=== PATIENT | female | born 1960 | race Caucasian/White ===

== ENCOUNTER 2024-12-23 09:14 | Inpatient (IN) ==
--- NOTE | 2024-12-23 09:48 | Emergency Department Note ---
Impression & Plan Dental abscess, Facial cellulitis, Failure of outpatient treatment ED Provider Note NAME: KAY SALVADOR AGE: 64 SEX: F : 1960 ARRIVES VIA: Walk-In INFORMANT: [Patient] ED PROVIDER(S): [Peng Spicer MD] CHIEF COMPLAINT: Dental pain HISTORY OF PRESENT ILLNESS: The patient is a 64-year-old female who presents with right lower jaw pain and swelling for the last 4 days. The patient is on Augmentin, this was started 2 days ago. Despite the Augmentin, things are worsening. She is trying ibuprofen for pain but it is upsetting her stomach. The patient has not yet seen a dentist, she states that given the holiday, no one seems to be calling back. Because of the ongoing swelling, she presents for evaluation. PMHx/PSHx/Social Hx: See Below PHYSICAL EXAM: GENERAL: Patient is in no acute distress. HEENT: No acute trauma, normocephalic atraumatic, mucous membranes moist, no nasal congestion. The patient does have swelling to the right lower mid jaw/mandible. She is tender in this area. There is erythema that tracks from this area down along the anterior right neck. She is tender in the area of the submental space on the right. There is no swelling to the area under the tongue. No pharyngitis. The right lower 1st and 2nd molars have inflammation at the gumline and are tender to touch. NECK: No stridor, no adenopathy, no meningismus, trachea is midline. LUNGS: Clear to auscultation bilaterally, no wheeze, no rhonchi, breath sounds equal. HEART: Without murmurs gallops or rubs, regular rate and rhythm. ABDOMEN: Soft, nontender, no peritonitis. EXTREMITIES: No cyanosis, full range of motion of all the joints without pain or difficulty. NEUROLOGIC: Oriented x 3, no acute motor or sensory deficits, no focal weakness. SKIN: No jaundice, no diaphoresis. DIFFERENTIAL DIAGNOSIS: Dental abscess, soft tissue abscess, failed outpatient management, pharyngitis, among others. EMERGENCY DEPARTMENT PROCEDURES: MEDICAL DECISION MAKING: There is no leukocytosis or concerning anemia. There is a normal platelet count. No bandemia. No renal failure or significant electrolyte abnormality. No concerning liver enzyme elevation. Soft tissue neck CT shows around a 1 cm abscess in the area of the right mandible consistent with her exam. The abscess was in the same area as the facial cellulitis. The patient received IV Unasyn. She received IV saline and IV Zofran, she was given IV morphine, IV Toradol, IV Pepcid and IV Tylenol. The patient has failed outpatient management. I did contact oral facial surgery. The patient may be a candidate for surgical intervention. However, for now, hospitalization, IV antibiotic therapy was recommended. I spoke with the patient and case management, the on-call hospitalist was consulted. Prior/Outside records/notes reviewed: None Imaging/x-ray results per my interpretation: Chronic Medical/Social conditions affecting care: None Care/Management discussed with: Case management, the on-call hospitalist. Maxillofacial surgery-Dr. Weller Level of care consideration(s): After review of the information above and other included data: --I believe the patient requires escalation of care to admission DISPOSITION: Admission Past Med/Surg History Problem List Failure of outpatient treatment (Acute) Facial cellulitis (Acute) Dental abscess (Acute) Medical History History of colitis Surgical History History of hysterectomy History of tonsillectomy Social History Smoking Status: Current every day smoker Preferred Language: Pashto Feels Safe at Home: Yes Allergies Allergies Allergy/AdvReac Type Severity Reaction Status Date / Time epinephrine AdvReac Mild Verified 11/28/22 12:34 Home Meds Home Medications Medication Instructions Recorded Confirmed Vitamin D3 0 mg PO DAILY 12/23/24 12/23/24 magnesium 0 mg PO HS 12/23/24 12/23/24 multivitamin 1 tab PO DAILY 12/23/24 12/23/24 Results & Data (ED) Vital Signs Vital Signs - 24 hr 12/23/24 09:15 12/23/24 09:18 12/23/24 10:50 Temperature 36.6 C Temperature Source Temporal Artery Scan Pulse Rate 85 Pulse Rate [Apical] 80 75 Respiratory Rate 18 20 18 Respiratory Effort / Characteristics Non-Labored Respiratory Depth Normal Blood Pressure 119/78 Blood Pressure [Left Arm] 132/84 118/73 Blood Pressure Mean 91 Blood Pressure Mean [Left Arm] 100 88 Pulse Oximetry 98 98 92 Oxygen Delivery Method Room Air Room Air Sepsis Recent Fever Within 48 Hours No Sepsis New/Unexplained Change in Mental Status No Sepsis Action Taken by Nursing No Action Required 12/23/24 12:30 12/23/24 13:30 Temperature Temperature Source Pulse Rate Pulse Rate [Apical] 70 63 Respiratory Rate 18 18 Respiratory Effort / Characteristics Respiratory Depth Blood Pressure Blood Pressure [Left Arm] 137/70 131/77 Blood Pressure Mean Blood Pressure Mean [Left Arm] 92 95 Pulse Oximetry 99 97 Oxygen Delivery Method Room Air Sepsis Recent Fever Within 48 Hours Sepsis New/Unexplained Change in Mental Status Sepsis Action Taken by Longterm Medications Current Medication List: was personally reviewed by me Laboratory Data Attestation: I reviewed the patient's lab results. 12/23/24 09:50 12/23/24 09:50 Lab Results 12/23/24 Range/Units 09:50 WBC 9.14 (4.8-10.8) K/ul RBC 4.58 (4.20-5.40) M/uL Hgb 14.0 (12.0-16.0) g/dl Hct 41.8 (37.0-47.0) % MCV 91.3 (80.0-100.0) fL MCH 30.6 (25.0-34.0) pg MCHC 33.5 (32.0-36.0) g/dL RDW Std Deviation 47.0 H (36.4-46.3) fL RDW Coeff of [place] 13.9 (11.5-14.5) % Plt Count 252 (130-400) K/uL MPV 9.4 (9.4-12.4) fL Immature Gran % (Auto) 0.2 % Neut % (Auto) 79.4 % Lymph % (Auto) 12.8 % [place] % (Auto) 6.2 % Eos % (Auto) 1.2 % Baso % (Auto) 0.2 % Neut # (Auto) 7.25 H (1.40-6.50) K/uL Lymph # (Auto) 1.17 L (1.20-3.40) K/uL [place] # (Auto) 0.57 (0.11-0.59) K/uL Eos # (Auto) 0.11 (0.00-0.50) K/uL Baso # (Auto) 0.02 (0.00-0.20) K/uL Immature Gran # (Auto) 0.02 (0.01-0.20) K/uL Sodium 139 (136-145) mmol/L Potassium 4.0 (3.5-5.1) mmol/L Chloride 106 (98-107) mmol/L Carbon Dioxide 28 (21-32) mmol/L Anion Gap 5 (3-11) BUN 10 (6-23) mg/dl Creatinine 0.74 (0.6-1.2) mg/dl Est Cr Clr Drug Dosing 64.4 ml/min eGFR 90.85 BUN/Creatinine Ratio 13.5 (10-20) Glucose 97 (70-99(Fasting)) mg/dl Calcium 9.1 (8.6-10.3) mg/dl Magnesium 2.1 (1.7-2.4) mg/dl Total Bilirubin 0.5 (0.2-1.0) mg/dl AST 57 H (13-39) U/L ALT 26 (7-52) U/L Alkaline Phosphatase 80 (34-104) U/L Total Protein 6.8 (6.0-8.3) gm/dl Albumin 4.3 (3.4-5.0) gm/dl Globulin 2.5 (2.5-4.0) gm/dl Albumin/Globulin Ratio 1.7 (0.9-2) Administered Medications Discontinued Medications Sodium Chloride (Nss) 1,000 mls @ 999 mls/hr IV .Q1H1M AUGUST Stop: 12/23/24 10:45 Last Infusion: 12/23/24 11:12 Dose: Infused Documented By: Admin: 12/23/24 09:55 Dose: 999 mls/hr Documented By: SHAYAN Acetaminophen (Ofirmev) 1,000 mg in 100 mls @ 400 mls/hr IV NOW STA Stop: 12/23/24 09:56 Last Infusion: 12/23/24 10:34 Dose: Infused Documented By: Admin: 12/23/24 09:55 Dose: 400 mls/hr Documented By: SHAYAN Ampicillin Sodium/Sulbactam Sodium (Unasyn) 3,000 mg in 100 mls @ 200 mls/hr IV NOW STA Stop: 12/23/24 10:11 Last Infusion: 12/23/24 10:35 Dose: Infused Documented By: Admin: 12/23/24 09:55 Dose: 200 mls/hr Documented By: SHAYAN Famotidine (Pepcid 20mg Iv Push) 20 mg in 5 mls @ 2.5 mls/min IV NOW STA Stop: 12/23/24 12:27 Last Admin: 12/23/24 12:31 Dose: 2.5 mls/min Documented By: RADHA Ioversol (Optiray 320 100ml) 94 ml IV ONCE ONE Stop: 12/23/24 11:15 Last Admin: 12/23/24 11:14 Dose: 94 ml Documented By: JOCELYN Ketorolac Tromethamine (Ketorolac Tromethamine 15 Mg/Ml Vial) 10 mg IV NOW ONE Stop: 12/23/24 09:43 Last Admin: 12/23/24 09:55 Dose: 10 mg Documented By: SHAYAN Morphine Sulfate (Morphine Sulfate 2 Mg/Ml Carp) 2 mg IV NOW STA Stop: 12/23/24 09:43 Last Admin: 12/23/24 09:56 Dose: 2 mg Documented By: SHAYAN Morphine Sulfate (Morphine Sulfate 4 Mg/Ml 1 Ml Carp\Vial) 4 mg IV NOW STA Stop: 12/23/24 12:27 Last Admin: 12/23/24 12:33 Dose: 4 mg Documented By: RADHA Ondansetron HCl (Ondansetron Inj 2 Mg/Ml 2 Ml Vial) 4 mg IV NOW STA Stop: 12/23/24 09:43 Last Admin: 12/23/24 09:55 Dose: 4 mg Documented By: SHAYAN Ondansetron HCl (Ondansetron Inj 2 Mg/Ml 2 Ml Vial) 4 mg IV NOW STA Stop: 12/23/24 12:27 Last Admin: 12/23/24 12:31 Dose: 4 mg Documented By: RADHA Imaging Data Radiologist's Impression: Soft Tissue Neck CT 12/23/24 09:42 CT OF THE NECK WITH IV CONTRAST CLINICAL HISTORY: abscess r face, jaw COMPARISON STUDY: CT of the neck November 28, 2022. TECHNIQUE: Following IV administration of 94 mL of Optiray, helical axial images of the neck were obtained. Sagittal and coronal reconstructions were viewed. Automated exposure control was utilized for the study. A dose lowering technique was utilized adhering to the principles of ALARA. CT DOSE: 353.4 mGy.cm FINDINGS: Visualized portions of the intracranial contents are unremarkable. Parotid and submandibular glands are normal. The epiglottis is normal. Several prominent right-sided cervical lymph nodes are likely reactive. There is a periapical lucency involving the right second mandibular molar. There is a small associated rim-enhancing fluid collection overlying the right hemimandible which measures 8 mm x 2 mm. Adjacent stranding represents cellulitis. No additional fluid collections are present. There is no soft tissue gas. Multiple dental amalgams are present. The left first mandibular molar is absent. IMPRESSION: Periapical lucency involving the right second mandibular molar with a small associated 8 mm x 2 mm abscess overlying the right hemimandible. Adjacent stranding consistent with cellulitis. ACT 112: Negative or not required by law. Electronically signed by: Puma Grossman M.D. 12/23/2024 11:45 AM Discharge Plan Visit Data Chief Complaint: Dental/Oral Stated Complaint: MOUTH INF RT SIDE ED Provider: Peng Spicer Discharge Problem: Dental abscess, Facial cellulitis, Failure of outpatient treatment Patient Disposition: Admitted As Inpatient Condition: Fair Forms Stand Alone Forms: My ZMP Prescriptions Prescriptions: No Action multivitamin [Multi-Vitamins] Tablet 1 tab PO DAILY Vitamin D3 0 mg PO DAILY Patient Comments: 12/23- OTC unknown dose magnesium 0 mg PO HS Patient Comments: 12/23- OTC unknown dose Referrals Referrals: Kayla James DO [Primary Care Provider] -
[2024-12-23] MEDS: ACETAMINOPHEN 1,000 MG/100 ML VIAL IV STA (09:55)
[2024-12-23] MEDS: KETOROLAC TROMETHAMINE 15 MG/ML VIAL IV ONE (09:55)
[2024-12-23] MEDS: SODIUM CHLORIDE 0.9% 1,000 ML IV SCH (09:55)
[2024-12-23] MEDS: ONDANSETRON INJ 2 MG/ML 2 ML VIAL IV STA ×2 (09:55→12:31)
[2024-12-23] MEDS: AMPICILLIN/SULBACTAM SOD 3,000 MG/100 ML BAG IV STA (09:55)
[2024-12-23] MEDS: MoRPHine SULFATE 2 MG/ML CARP IV STA (09:56)
[2024-12-23 10:15] LABS: Hematocrit (blood only) 41.8 % (37.0-47.0); Hemoglobin 14.0 g/dl (12.0-16.0); Immature Granulocytes # (auto) 0.02 K/uL (0.01-0.20); Immature Granulocytes % (auto) 0.2 %; Mean Corpuscular Hemoglobin 30.6 pg (25.0-34.0); Mean Corpuscular Volume 91.3 fL (80.0-100.0); Platelet Count 252 K/uL (130-400); RDW Standard Deviation 47.0 fL (36.4-46.3); Red Blood Count 4.58 M/uL (4.20-5.40); White Blood Count 9.14 K/ul (4.8-10.8)
[2024-12-23 10:34] LABS: Alanine Aminotransferase 26.0 U/L (7-52); Albumin Globulin Ratio 1.7 (0.9-2); Alkaline Phosphatase 80.0 U/L (34-104); Anion Gap 5.0 (3-11); Bilirubin,Total 0.5 mg/dl (0.2-1.0); Blood Urea Nitrogen 10.0 mg/dl (6-23); Calcium 9.1 mg/dl (8.6-10.3); Carbon Dioxide 28.0 mmol/L (21-32); Chloride 106.0 mmol/L (98-107); Creatinine Clr Calc Pharmacy 64.4 ml/min; Globulin 2.5 gm/dl (2.5-4.0); Glucose 97.0 mg/dl (70-99(Fasting)); Magnesium 2.1 mg/dl (1.7-2.4); Potassium 4.0 mmol/L (3.5-5.1); Sodium 139.0 mmol/L (136-145); Total Protein 6.8 gm/dl (6.0-8.3)
[2024-12-23] MEDS: OPTIRAY 320 100ml IV ONE (11:14)
--- NOTE | 2024-12-23 11:48 | CT Scan Report ---
CT OF THE NECK WITH IV CONTRAST CLINICAL HISTORY: abscess r face, jaw COMPARISON STUDY: CT of the neck November 28, 2022. TECHNIQUE: Following IV administration of 94 mL of Optiray, helical axial images of the neck were ob tained. Sagittal and coronal reconstructions were viewed. Automated exposure control was utilized f or the study. A dose lowering technique was utilized adhering to the principles of ALARA. CT DOSE: 353.4 mGy.cm FINDINGS: Visualized portions of the intracranial contents are unremarkable. Parotid and submandibul ar glands are normal. The epiglottis is normal. Several prominent right-sided cervical lymph nodes ar e likely reactive. There is a periapical lucency involving the right second mandibular molar. There i s a small associated rim-enhancing fluid collection overlying the right hemimandible which measures 8 mm x 2 mm. Adjacent stranding represents cellulitis. No additional fluid collections are present. Th ere is no soft tissue gas. Multiple dental amalgams are present. The left first mandibular molar is a bsent. IMPRESSION: Periapical lucency involving the right second mandibular molar with a small associated 8 mm x 2 mm abscess overlying the right hemimandible. Adjacent stranding consistent with cellulitis. ACT 112: Negative or not required by law. Electronically signed by: Puma Grossman M.D. 12/23/2024 11:45 AM
[2024-12-23] MEDS: FAMOTIDINE 20MG IV PUSH 20 MG/5 ML SYR IV STA (12:31)
[2024-12-23] MEDS: MoRPHine SULFATE 4 MG/ML 1 ML CARP\\VIAL IV STA (12:33)
--- NOTE | 2024-12-23 16:25 | History & Physical Report ---
Date of Service December 23, 2024 Assessment & Plan (1) Dental abscess: Plan: As above in the History of Present Illness. (2) Tobacco abuse: Plan: As above in the History of Present Illness. Admission and Anticipated Discharge Date Admission Date: December 23, 2024 History of Present Illness Chief Complaint: "Last Wednesday (December 12, 2024), my throat was sore and both my ears hurt. The next day/Wednesday (December 13, 2024), I was fine. I was fine until this Wednesday (December 19, 2024), when the back tooth on my right lower jaw started hurting and the gum started swelling up. 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 Now, I must have a tooth infection. On evening (December 21, 2024, 6:45pm), I couldn't take the pain any longer, so I went to [facility] ([facility] [place] [address]) and they prescribed augmentin 875/125mg PO bid and ibuprofen 600mg PO q6 prn pain. The augmentin did not take away my swelling and the ibuprofen did not take away my pain. If anything at all, the ibuprofen did a number on my stomach, so I am not taking ibuprofen anymore. I didn't go back to [facility] ([address] [place] [address], [place] [address]); I came to [facility] ER instead to get my tooth infection taken care of today. I got some IV antibiotic (e.g., unasyn 3g IV x 1 dose on 12/23/2024, 9:55am), and some pain meds (e.g., toradol 10mg IV x 1 dose (12/23/2024, 9:55am), tylenol 1000mg IV x 1 dose (12/23/2024, 9:55am), morphine 2mg IV x 1 dose (12/23/2024, 9:56am), morphine 4mg IV x 1 dose (12/23/2024, 12:33pm), but I still hurt. The ER doc said that Oromaxillofacial Surgeon Dr. Ke Weller will be stopping by to drain my tooth infection later today. 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 The next day/Wednesday (December 13, 2024), I was fine. I was fine until this Wednesday (December 19, 2024), when the back tooth on my right lower jaw started hurting and the gum started swelling up. 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 Now, I must have a tooth infection. On evening (December 21, 2024, 6:45pm), I couldn't take the pain any longer, so I went to [facility] ([facility] [place] [address]) and they prescribed augmentin 875/125mg PO bid and ibuprofen 600mg PO q6 prn pain. The augmentin did not take away my swelling and the ibuprofen did not take away my pain. If anything at all, the ibuprofen did a number on my stomach, so I am not taking ibuprofen anymore. I didn't go back to [facility] ([facility] [place] [address]); I came to [facility] ER instead to get my tooth infection taken care of today. I got some IV antibiotic (e.g., unasyn 3g IV x 1 dose on 12/23/2024, 9:55am), and some pain meds (e.g., toradol 10mg IV x 1 dose (12/23/2024, 9:55am), tylenol 1000mg IV x 1 dose (12/23/2024, 9:55am), morphine 2mg IV x 1 dose (12/23/2024, 9:56am), morphine 4mg IV x 1 dose (12/23/2024, 12:33pm)), but I still hurt. The ER doc said that Oromaxillofacial Surgeon Dr. Ke Weller will be stopping by to drain my tooth infection later today. I will need more pain medicine soon." Patient denies antecedent/coincident fevers, chills, diaphoresis, cough, wheeze, sore throat, hemoptysis, shortness of breath, dyspnea on exertion, chest pains, palpitations, pleurisy, nausea, vomiting, diarrhea, abdominal pain, pelvic pain, hematemesis, hematochezia, melena, hematuria, dysuria, frequency, urgency, headaches, dizziness, lightheadedness, visual changes, hearing changes, weakness, falls, syncope, trauma, travel history, sick contacts, or food/drug ingestions novel or new. All other review of systems are reported as negative by the patient on admission date 12/23/2024. In [facility] ER bed #C06, patient was afebrile @ 36.6 degrees Celsius, HR 85, RR 0, O2 sat 98% on room air, and BP 119/78 (12/23/2024, 9:18am). Exam was noted for warmth, edema, tenderness, fluctuance @ base of right 2nd mandibular molar without ulceration, discharge (sanguineous, serous, suppurative), malodor, or lymphangitic streaking, with mercury filling @ right 2nd mandibular molar intact and no visible caries @ right 2nd mandibular molar. The remaining 3 second molars also appeared intact with no visible caries. There was no other evidence of gingivostomatitis on inspection of patient's remaining gum line. Labs in [facility] ER bed #C06 included: WBC 9.14, N79 L13 M6 E1, Hb 14.0, MCV 91.3, MCHC 33.5, platelet 252 (12/23/2024, 9:50am). Na 139, K 4.0 BUN 10, creatinine 0.74, glucose 97, Ca 9.1, Mg 2.1, AST 57, ALT 26, ALK PHOS 80, TBili 0.5 (12/23/2024, 9:50am). Additional testing in [facility] ER bed #C06 included: CT neck with IV contrast (12/23/2024, 9:42am): 1. Visualized portions of the intracranial contents are unremarkable. 2. Parotid and submandibular glands are normal. 3. The epiglottis is normal. 4. Several prominent right-sided cervical lymph nodes are likely reactive. 5. Periapical lucency involving the right second mandibular molar. 6. Small associated rim-enhancing fluid collection overlying the right hemimandible which measures 8 mm x 2 mm. Adjacent stranding represents cellulitis. 7. No additional fluid collections are present. 8. No soft tissue gas. 9. Multiple dental amalgams are present. 10.The left first mandibular molar is absent. Patient was subsequently admitted to the inpatient hospitalist service @ [facility] on 12/23/2024 with the following diagnoses: 1. Acute right 2nd mandibular molar abscess with surrounding cellulitis, having failed outpatient therapy utilizing augmentin 875/125mg PO bid (start date/time, December 21, 2024, 8:00pm) at home. 2. Ongoing tobacco abuse with no subsequent diagnosis of COPD, not on home O2 or home steroids. To address #1, patient was started on unasyn 3g IV x 1 dose on 12/23/2024, 9:55am), and analgesia (e.g., toradol 10mg IV x 1 dose (12/23/2024, 9:55am), tylenol 1000mg IV x 1 dose (12/23/2024, 9:55am), morphine 2mg IV x 1 dose (12/23/2024, 9:56am), morphine 4mg IV x 1 dose (12/23/2024, 12:33pm)) in [facility] ER bed #C06. Patient was started on zosyn 4.5g IV q8 (day #06/27 on 12/23/2024, 4:45pm) in [facility] Med-Surg bed # W357-2 given the high incidence (cf., 40-80%) of resistance of E.coli to unasyn. While both unasyn and zosyn have excellent coverage against anaerobic bacteria, the principal weakness of unasyn is that it has become increasingly ineffective against beta-lactamase producing E. coli, which degrades ampicillin, even in the presence of sulbactam. Patient awaits formal OMFS evaluation with Dr. Ke Weller with anticipated I & D of acute right 2nd mandibular molar abscess in the 12/23/2024 pm. To address #2, patient received smoking cessation counselling [address] [facility] ER bed #C06. Patient agrees to quit smoking tobacco while in [facility]. Patient accepts offer of nicotine replacement utilizing nicotine patch 14mg transderrmal daily while in [facility]. Allergies Allergy/AdvReac Type Severity Reaction Status Date / Time epinephrine AdvReac Mild Verified 11/28/22 12:34 Home Medications Medication Instructions Recorded Confirmed Type Vitamin D3 0 mg PO DAILY 12/23/24 12/23/24 History magnesium 0 mg PO HS 12/23/24 12/23/24 History multivitamin 1 tab PO DAILY 12/23/24 12/23/24 History Past Med/Surg History Problem List (Updated 12/23/24 @ 17:30 by Max Manning MD, PhD) Tobacco abuse Failure of outpatient treatment (Acute) Facial cellulitis (Acute) Dental abscess (Acute) Medical History History of colitis Surgical History History of tonsillectomy History of hysterectomy Family History Father , Unknown age, unknown cause as patient is estranged from patient's father. No problems noted. Mother , at 84 years of age from acute CVA with former tobacco abuse. No problems noted. 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 How many Children do You have: 2 How many Children do You have Comment: 35y son,s/p appy; 38y daughter w/thyroid CA,s/p resection;PCOS;IBS;pre-DM;obesity other: Frustrated with boss/Deli Mgr @ [employer]; wants to quit and find new job. Feels Safe at Home: Yes Review of Systems Constitutional: As above in the History of Present Illness. Physical Exam Constitutional: General: Uncomfortable with patient pointing to her right 2nd mandibular molar abscess, yet cooperative, coherent. Patient speaks in complete, fluent, and articulate sentences without pause, interruption, cough, or wheeze. HEENT: Normocephalic, atraumatic. Pupils equally round and reactive to light. No nystagmus, gaze paresis, anisocoria, miosis, mydriasis, hyphema, scleral injection, conjunctivitis, or pterygium. No otorrhea. No pharyngeal erythema, edema, or discharge. Warmth, edema, tenderness, fluctuance @ base of right 2nd mandibular molar without ulceration, discharge (sanguineous, serous, suppurative), malodor, or lymphangitic streaking, with mercury filling @ right 2nd mandibular molar intact and no visible caries @ right 2nd mandibular molar. Remaining 3 second molars appear intact with no visible caries. No other evidence of gingivostomatitis on inspection of patient's remaining gum line. Neck: Supple, no stridor, bruit, or hepato-jugular reflux. No lid lag. No exophthalmos/proptosis. Positive for multi-nodular goiter, bilateral tenderness. Jugular venous pressure is estimated to be 3 cm above the sternal angle of Alexei, which in turn, is 5 cm above the level of the right atrium; with jugular venous pressure estimated to be 8 cm, then, there is no jugular venous distention on 12/23/2024. Lymphatics: Positive right anterior cervical lymphadenopathy. Negative for right posterior cervical, left anterior/posterior cervical, supraclavicular, infraclavicular, axillary, epitrochlear, or inguinal adenopathy. Chest: Symmetric rise and fall with respirations. Non-tender to palpation. Lungs: Clear to auscultation and percussion. No audible expiratory wheeze, egophony, pectoriloquy, increase in tactile fremitus, or flatness/dullness to percussion at the bases. Heart: Regular rate. Regular rhythm. S1 and S2 noted. No S3 or S4 summation gallop. No tripartite friction rub. Grade II/ early systolic murmur @ LLSB without radiation to the carotids, axilla, or back, and which remains invariant in regards to the respiratory cycle. Abdomen: Soft, non-tender, non-distended. No rebound, guarding, Mosqueda's sign, or organomegaly. Bowel sounds auscultated in all 4 quadrants. Extremities: No clubbing, cyanosis, or edema in upper extremities or lower extremities bilaterally. 2+ pedal pulses bilaterally. Skin: No decubitus ulcer, exanthem, or enanthem. Genito-urinary: No urethral discharge. No boswell catheter. Neurology: No myoclonus, tremors, or tics. Psychiatry: No homicidal ideation. No suicidal ideation. No flat affect; smiles appropriately. Results & Data Results & Data Vital Signs (Past 12 Hours) Vital Signs Temp Pulse Pulse Pulse Resp BP BP 12/23/24 16:00 36.7 C 59 L 16 133/75 12/23/24 15:52 56 L 16 136/77 12/23/24 14:00 72 18 119/73 12/23/24 13:30 63 18 131/77 12/23/24 12:30 70 18 137/70 12/23/24 10:50 75 18 118/73 12/23/24 09:18 36.6 C 85 20 119/78 12/23/24 09:15 80 18 132/84 Pulse Ox O2 Del Method 12/23/24 16:00 98 Room Air 12/23/24 15:52 98 Room Air 12/23/24 14:00 97 Room Air 12/23/24 13:30 97 Room Air 12/23/24 12:30 99 12/23/24 10:50 92 12/23/24 09:18 98 Room Air 12/23/24 09:15 98 Room Air Laboratory Results As above in the History of Present Illness. Diagnostic Findings As above in the History of Present Illness. Medications Administered As above in the History of Present Illness. Code Status & VTE Plan VTE Prophylaxis Plan VTE Prophylaxis will be ordered: Yes PG Care Time/CCT Total # of Minutes Spent Total Time Spent with Patient: Total time spent is greater than 50% in coordination of care (as documented) at patient's floor/unit and/or counseling patient: Coding Level of Care Code 27180 INT INP/OBS CARE MIN Diagnoses Dental abscess K04.7 Tobacco abuse Z72.0
[2024-12-23] MEDS: MoRPHine SULFATE 4 MG/ML 1 ML CARP\\VIAL IV PRN (16:31)
[2024-12-23] MEDS: PIPERACILLIN/TAZOBACTAM 4.5 GM/100 ML BAG IV ONE (17:04)
[2024-12-23] MEDS: PANTOprazole 40 MG/10 ML SYR IV SCH (17:05)
[2024-12-23] MEDS: ACETAMINOPHEN 325 MG TAB PO PRN (17:10)
[2024-12-23] MEDS: SODIUM CHLORIDE 0.9% 1,000 ML IV ONE (17:14)
[2024-12-23] MEDS: NICOTINE 14 MG/24 HR PATCH TD SCH (17:51)
--- NOTE | 2024-12-23 19:54 | Oral/Maxillofacial Consult ---
Date of Consultation December 23, 2024 History of Present Illness Attending Physician: Max Manning MD, PhD History of Present Illness Oral Maxillofacial Surgery Exam K12.2 CPT 80931 Present Complaint: I have pain/swelling/drainage from my infected lower right teeth 30,31 Swelling right submandibular area Symptoms have been ongoing for a about 5 days not responding to oral antibiotics now pain and more swelling She can not eat, sleep and in a lot of pain not controlled Oral Exam: Finding--swelling and abscess associated with the # 30 and 31 teeth, tender gingival tissue with deep pocket formation.Teeth are in an abnormal position and removal is clinical indicated. Large upper facial bone exostosis Imaging: CT scan was reviewed, there were no abnormal findings other then the infected lower right # 30, 31 with radiolucent bone defect surrounding there teeth The TMJ are well positioned and no evidence of bony pathology. The sinus, supporting bone all WNL Evaluated the nerve/sinus relationship to the roots of the teeth. The following teeth were carious # 30,31 Submandibular infection right side CT OF THE NECK WITH IV CONTRAST CLINICAL HISTORY: abscess r face, jaw FINDINGS: Visualized portions of the intracranial contents are unremarkable. Parotid and submandibular glands are normal. The epiglottis is normal. Several prominent right-sided cervical lymph nodes are likely reactive. There is a periapical lucency involving the right second mandibular molar. There is a small associated rim-enhancing fluid collection overlying the right hemimandible which measures 8 mm x 2 mm. Adjacent stranding represents cellulitis. No additional fluid collections are present. There is no soft tissue gas. Multiple dental amalgams are present. The left first mandibular molar is absent. IMPRESSION: Periapical lucency involving the right second mandibular molar with a small associated 8 mm x 2 mm abscess overlying the right hemimandible. Adjacent stranding consistent with cellulitis. Soft tissue: Mucobuccal fold and submandibular area is very swollen and fluctuant The floor of the mouth, tongue, hard/soft palate, posterior pharyngeal area all with in normal limits, no pathology or abnormal findings noted. Oral Care: Overall oral care is good Occlusion: Class I TMJ exam: No pop, clicking, pain, good ROM, No history of TMJ injury or dysfunction Periodontal exam: Right side gingival tissue showing evidence of periodontal pathology. Head/Neck exam: Neck is supple, FROM, Able to extend and flex neck w/o difficulty, Submandibular space swelling No masses, no abnormalities, no airway issues, history of sleep apnea Treatment Plan: NPO tonight, To OR tomorrow for I&D with extraction of # 30 and 31 Set up with general anesthesia in hospital due to complexity of the procedure I reviewed the treatment plan and consent with the patient Understanding was expressed. I explained why both teeth # 30 and 31 need to be extracted due to the bone loss noted on the CT Time was given for questions regarding the surgery, risks and post op care. Discussed alternative to treatment--procedure as planned, Do not do surgery The following teeth are decayed and fractured and removal is indicated PEGGY--3- and 31 with Intraoral I&D Risks discussed: Bleeding,Pain,swelling,infection, dry socket, delayed healing, nerve injury to face,lips,tongue,chin area which could be permanent (rare). TMJ, jaw stiffness, change in bite (rare), ear pain (referred). Need to leave a small root fragment in place to avoid injury to nerve Relationship of wisdom teeth to nerve/sinus and risk of jaw fracture. Future dental care is needed Home care reviewed: tooth brushing, rinsing, follow up care with Dr Weller. diet=[id number] dental. Discussed activity level, driving/work while on Rx pain Meds. Surgery to be set up tomorrow December 24 in the OR Allergies Allergy/AdvReac Type Severity Reaction Status Date / Time epinephrine AdvReac Mild Verified 11/28/22 12:34 Home Medications Medication Instructions Recorded Confirmed Type Vitamin D3 0 mg PO DAILY 12/23/24 12/23/24 History magnesium 0 mg PO HS 12/23/24 12/23/24 History multivitamin 1 tab PO DAILY 12/23/24 12/23/24 History Patient History Medical History History of colitis Surgical History History of tonsillectomy History of hysterectomy Family History (Updated 12/23/24 @ 17:25 by Max Manning MD, PhD) Father , Unknown age, unknown cause as patient is estranged from patient's father. No problems noted. Mother , at 84 years of age from acute CVA with former tobacco abuse. No problems noted. 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 How many Children do You have: 2 How many Children do You have Comment: 35y son,s/p appy; 38y daughter w/thyroid CA,s/p resection;PCOS;IBS;pre-DM;obesity Other Information That Helps Us Care for You: No other: Frustrated with boss/Toñitoi Mgr @ [employer]; wants to quit and find new job. Feels Safe at Home: Yes Safety Concerns: Feels Safe At This Time Results & Data Vital Signs (Past 12 Hours) Vital Signs Temp Pulse Pulse Pulse Resp BP BP 12/23/24 16:00 36.7 C 59 L 16 133/75 12/23/24 15:52 56 L 16 136/77 12/23/24 14:00 72 18 119/73 12/23/24 13:30 63 18 131/77 12/23/24 12:30 70 18 137/70 12/23/24 10:50 75 18 118/73 12/23/24 09:18 36.6 C 85 20 119/78 12/23/24 09:15 80 18 132/84 Pulse Ox O2 Del Method 12/23/24 16:00 98 Room Air 12/23/24 15:52 98 Room Air 12/23/24 14:00 97 Room Air 12/23/24 13:30 97 Room Air 12/23/24 12:30 99 12/23/24 10:50 92 12/23/24 09:18 98 Room Air 12/23/24 09:15 98 Room Air PG Care Time/CCT Total # of Minutes Spent Total Time Spent with Patient: Total time spent is greater than 50% in coordination of care (as documented) at patient's floor/unit and/or counseling patient: Coding Level of Care Code 60720 INT INP/OBS CARE 1/40MIN
[2024-12-23] MEDS: ONDANSETRON INJ 2 MG/ML 2 ML VIAL IV PRN (21:23)
[2024-12-23] MEDS: PIPERACILLIN/TAZOBACTAM 4.5 GM/100 ML BAG IV SCH (22:22)
[2024-12-24] MEDS: REMOVE NICODERM PATCH SCH (07:35)
[2024-12-24] MEDS ORDERED: SUCCINYLCHOLINE 100MG/5ML SYR IV ONE (15:49)
[2024-12-24] MEDS ORDERED: DEXAMETHASONE SOD INJ 4 MG/ML VIAL ONE (15:49)
[2024-12-24] MEDS ORDERED: PROPOFOL IV EMULSION 10 MG/ML 20 ML VIAL IV ONE (15:49)
[2024-12-24] MEDS ORDERED: ONDANSETRON INJ 2 MG/ML 2 ML VIAL ONE (15:49)
[2024-12-24] MEDS ORDERED: KETOROLAC 30 MG/ML VIAL ONE (15:49)
--- NOTE | 2024-12-24 16:15 | History & Physical Bridge Note ---
Date of Service December 24, 2024 History & Physical Bridge Note I have examined the patient, reviewed the History & Physical and in the interval since the performance of the History & Physical I have noted the following changes of clinical significance: no changes noted OK for the I&D with extractions of # 30,31
[2024-12-24] MEDS ORDERED: ONDANSETRON INJ 2 MG/ML 2 ML VIAL IV PRN (16:18)
[2024-12-24] MEDS ORDERED: HYDROmorphone INJ 1 MG/ML SYRINGE IV PRN (16:18)
[2024-12-24] MEDS ORDERED: ATROPINE SULFATE 0.1 MG/ML 10ML SYR IV PRN (16:18)
--- NOTE | 2024-12-24 16:18 | Anesthesiology Consultation ---
Date of Service December 24, 2024 Assessment & Plan ASA ASA2 Proposed Anesthesia Anesthesia Type: General Risk / Benefits Reviewed With: PT / POA / Parent / Guardian, Accepts Plan and Informed Consent Obtained History Surgery Operation Date: 12/24/24 06:30 Proposed Procedures p Incision and Drainage General(Right) - Ke Weller, DMD Height/Weight Height: 5 ft 3 in Weight: 59.5 kg Allergies Allergy/AdvReac Type Severity Reaction Status Date / Time epinephrine AdvReac Mild Verified 11/28/22 12:34 Medications Home Medications Medication Instructions Recorded Confirmed Last Taken Vitamin D3 0 mg PO DAILY 12/23/24 12/23/24 Unknown magnesium 0 mg PO HS 12/23/24 12/23/24 Unknown multivitamin 1 tab PO DAILY 12/23/24 12/23/24 Unknown Active Medications Generic Name Dose Route Start Last Admin Trade Name Freq PRN Reason Stop Dose Admin Acetaminophen 650 mg 12/23/24 13:15 12/24/24 13:30 Acetaminophen 325 Mg Tab PO 01/22/25 13:14 650 mg Q6H PRN Administration pain 1-3;headache;T>100.4F Pantoprazole Sodium 40 mg in 10 mls @ 5 mls/min 12/23/24 16:30 12/24/24 08:40 Protonix IV 01/22/25 16:29 5 mls/min DAILY AUGUST Administration Piperacillin Sod/Tazobactam Sod 4.5 gm in 100 mls @ 25 mls/hr 12/23/24 22:45 12/24/24 14:20 Zosyn IV 12/30/24 22:44 25 mls/hr Q8H AUGUST Administration Protocol Miscellaneous 1 each 12/24/24 08:59 12/24/24 07:35 Remove Nicoderm Patch N/A 01/23/25 08:58 1 each DAILY@0859 AUGUST Administration Morphine Sulfate 4 mg 12/23/24 16:25 12/24/24 07:35 Morphine Sulfate 4 Mg/Ml 1 Ml Carp\Vial IV 01/06/25 16:24 4 mg Q4 PRN Administration Severe Pain (Scale 7, 8, 9,10) Nicotine 1 patch 12/23/24 17:15 12/24/24 07:35 Nicotine 14 Mg/24 Hr Patch TD 01/22/25 17:14 1 patch QAM AUGUST Administration Ondansetron HCl 4 mg 12/23/24 20:53 12/24/24 07:35 Ondansetron Inj 2 Mg/Ml 2 Ml Vial IV 01/22/25 20:52 4 mg Q6H PRN Administration Nausea/vomiting NPO Date Last Intake of Fluids: 12/23/24 Time Last Intake of Fluids: 23:59 Last Intake of Fluids Comment: sips with meds Date Last Intake of Solids: 12/22/24 Time Last Intake of Solids: 18:00 Past Medical History Medical History History of colitis Exercise / Class Metabolic Activity II 4-5 Yardwork/Stairs/Walk up hill Past Family History Family History Father , Unknown age, unknown cause as patient is estranged from patient's father. No problems noted. Mother , at 84 years of age from acute CVA with former tobacco abuse. No problems noted. Past Surgical History Surgical History History of tonsillectomy History of hysterectomy Past Anesthesia History No Hx of Anesthesia Complications and No Family Hx of Anesthesia Complications History of PONV No Hx of PONV and No Hx of Motion Sickness Social History Smoking Status: Current every day smoker Do You Dip or Chew Tobacco: No Hx Alcohol Use: Yes Alcohol type: wine alcohol intake frequency: a few times a week Hx Substance Use: No Review of Systems denies fever/cough/ colds/ chest pain/ SOB/ EFREM denies EFREM Physical Exam Vital Signs Last Vital Signs Temp 37.1 C 12/24/24 14:18 Pulse 68 12/24/24 14:18 Resp 16 12/24/24 14:18 BP 122/75 12/24/24 14:18 Pulse Ox 99 12/24/24 14:18 O2 Del Method Room Air 12/24/24 14:18 ENMT Mouth: no TMJ abnormality and no dentition abnormality Thyromental Distance: > or= 3.5 Finger Breadths Mallampati Class: II Neck neck extension not limited Respiratory normal respiratory effort; no respiratory distress Auscultation: lungs clear to auscultation bilaterally Cardiovascular Rate/Rhythm: regular rate and regular rhythm Neurologic moves all extremities Psychiatric Orientation: alert and oriented x 3 Testing Laboratory Results 12/23/24 09:50 12/23/24 09:50
[2024-12-24] MEDS: BUPIVACAINE/EPINEPHRINE 0.5% 1:200,000 1.8 ML CARP ONE (17:02)
[2024-12-24] MEDS: CHLORHEXIDINE GLUCONATE 0.12% 480 ML MT ONE (17:03)
--- NOTE | 2024-12-24 17:20 | Post Operative Brief Note ---
PG Immediate Post Op with CF Date of Surgery December 24, 2024 Pre & Post Diagnosis Operation Date: 12/24/24 06:30 Pre-Op Diagnosis: Right mandibular dental abscess Post-Op Diagnosis: Right mandibular dental abscess I identified the patient and participated in the time-out.: Yes Procedure Operation Date: 12/24/24 06:30 Actual Procedures p Irrigation and debridement of right jaw (Right) - Ke Weller DMD Surgeon Ke Weller DMD Medical Coordinator Pesticide Use none Estimated Blood Loss 5 Findings Consistent with Post-Op Diagnosis grossly infected right retromolar area and right submandibular space Carious abscessed # 30,31 Specimens Specimen Description: 1. infected cyst right jaw
--- NOTE | 2024-12-24 17:51 | Anesthesiology Progress Note ---
Date of Service December 24, 2024 Anesthesia Post Procedure Vital Signs Vital Signs: Temp Pulse Pulse Resp BP BP Pulse Ox 12/24/24 17:45 36.7 C 65 18 152/77 H 96 12/24/24 17:35 68 16 140/65 97 12/24/24 17:25 79 18 134/66 98 12/24/24 17:15 36.0 C L 89 19 131/74 98 12/24/24 14:18 37.1 C 68 16 122/75 99 12/24/24 07:45 36.7 C 58 L 16 114/73 93 12/24/24 07:10 12/23/24 19:46 36.8 C 52 L 12 130/78 95 O2 Del Method 12/24/24 17:45 Room Air 12/24/24 17:35 Room Air 12/24/24 17:25 Room Air 12/24/24 17:15 Room Air 12/24/24 14:18 Room Air 12/24/24 07:45 Room Air 12/24/24 07:10 Room Air 12/23/24 19:46 Room Air Pain Intensity Right Face: Pain Intensity: 4 Transfer of Care Handoff Completed per policy Notes Mental Status: alert / awake / arousable and participated in evaluation Patient Amnestic to Procedure: Yes Nausea / Vomiting: adequately controlled Pain: adequately controlled Airway Patency, RR, SpO2: stable & adequate BP & HR: stable & adequate Hydration State: stable & adequate Anesthetic Complications: no major complications apparent and Pt Satisfied with anesthetic care
[2024-12-24] MEDS: HYDROCODONE/ACETAMOPHEN 5/325MG TAB PO PRN (19:33)
--- NOTE | 2024-12-24 22:42 | Hospitalist Progress Note ---
Date of Service December 24, 2024 Assessment & Plan Admission and Anticipated Discharge Date Admission Date: December 23, 2024 Subjective "I am ok. My right lower jaw still hurts where the abscess is." Review of Systems Constitutional: Positive for right mandibular pain @ right 2nd molar abscess. Negative for antecedent/coincident fevers, chills, diaphoresis, cough, wheeze, sore throat, hemoptysis, shortness of breath, dyspnea on exertion, chest pains, palpitations, pleurisy, nausea, vomiting, diarrhea, abdominal pain, pelvic pain, hematemesis, hematochezia, melena, hematuria, dysuria, frequency, urgency, headaches, dizziness, lightheadedness, visual changes, hearing changes, weakness, falls, syncope, trauma, travel history, sick contacts, or food/drug ingestions novel or new. All other review of systems are reported as negative by the patient on 12/24/2024.. Physical Exam Constitutional: General: Uncomfortable with patient pointing to her right 2nd mandibular molar abscess, yet cooperative, coherent. Patient speaks in complete, fluent, and articulate sentences without pause, interruption, cough, or wheeze. HEENT: Normocephalic, atraumatic. Pupils equally round and reactive to light. No nystagmus, gaze paresis, anisocoria, miosis, mydriasis, hyphema, scleral injection, conjunctivitis, or pterygium. No otorrhea. No pharyngeal erythema, edema, or discharge. Warmth, edema, tenderness, fluctuance @ base of right 2nd mandibular molar without ulceration, discharge (sanguineous, serous, suppurative), malodor, or lymphangitic streaking, with mercury filling @ right 2nd mandibular molar intact and no visible caries @ right 2nd mandibular molar. Remaining 3 second molars appear intact with no visible caries. No other evidence of gingivostomatitis on inspection of patient's remaining gum line. Neck: Supple, no stridor, bruit, or hepato-jugular reflux. No lid lag. No exophthalmos/proptosis. Positive for multi-nodular goiter, bilateral tenderness. Jugular venous pressure is estimated to be 3 cm above the sternal angle of Alexei, which in turn, is 5 cm above the level of the right atrium; with jugular venous pressure estimated to be 8 cm, then, there is no jugular venous distention on 12/23/2024. Lymphatics: Positive right anterior cervical lymphadenopathy. Negative for right posterior cervical, left anterior/posterior cervical, supraclavicular, infraclavicular, axillary, epitrochlear, or inguinal adenopathy. Chest: Symmetric rise and fall with respirations. Non-tender to palpation. Lungs: Clear to auscultation and percussion. No audible expiratory wheeze, egophony, pectoriloquy, increase in tactile fremitus, or flatness/dullness to percussion at the bases. Heart: Regular rate. Regular rhythm. S1 and S2 noted. No S3 or S4 summation gallop. No tripartite friction rub. Grade II/ early systolic murmur @ LLSB without radiation to the carotids, axilla, or back, and which remains invariant in regards to the respiratory cycle. Abdomen: Soft, non-tender, non-distended. No rebound, guarding, Mosqueda's sign, or organomegaly. Bowel sounds auscultated in all 4 quadrants. Extremities: No clubbing, cyanosis, or edema in upper extremities or lower extremities bilaterally. 2+ pedal pulses bilaterally. Skin: No decubitus ulcer, exanthem, or enanthem. Genito-urinary: No urethral discharge. No boswell catheter. Neurology: No myoclonus, tremors, or tics. Psychiatry: No homicidal ideation. No suicidal ideation. No flat affect; smiles appropriately. Results & Data Results & Data Vital Signs (Past 12 Hours) Vital Signs Temp Pulse Pulse Resp BP BP Pulse Ox 12/24/24 20:10 36.7 C 72 14 122/76 95 12/24/24 18:40 36.7 C 56 L 16 137/65 98 12/24/24 18:08 36.7 C 60 16 139/61 98 12/24/24 17:45 36.7 C 65 18 152/77 H 96 12/24/24 17:35 68 16 140/65 97 12/24/24 17:25 79 18 134/66 98 12/24/24 17:15 36.0 C L 89 19 131/74 98 12/24/24 14:18 37.1 C 68 16 122/75 99 O2 Del Method 12/24/24 20:10 Room Air 12/24/24 18:40 Room Air 12/24/24 18:08 Room Air 12/24/24 17:45 Room Air 12/24/24 17:35 Room Air 12/24/24 17:25 Room Air 12/24/24 17:15 Room Air 12/24/24 14:18 Room Air Laboratory Results WBC 9.14, N79 L13 M6 E1, Hb 14.0, MCV 91.3, MCHC 33.5, platelet 252 (12/23/2024, 9:50am). Na 139, K 4.0 BUN 10, creatinine 0.74, glucose 97, Ca 9.1, Mg 2.1, AST 57, ALT 26, ALK PHOS 80, TBili 0.5 (12/23/2024, 9:50am). Diagnostic Findings CT neck with IV contrast (12/23/2024, 9:42am): 1. Visualized portions of the intracranial contents are unremarkable. 2. Parotid and submandibular glands are normal. 3. The epiglottis is normal. 4. Several prominent right-sided cervical lymph nodes are likely reactive. 5. Periapical lucency involving the right second mandibular molar. 6. Small associated rim-enhancing fluid collection overlying the right hemimandible which measures 8 mm x 2 mm. Adjacent stranding represents cellulitis. 7. No additional fluid collections are present. 8. No soft tissue gas. 9. Multiple dental amalgams are present. 10.The left first mandibular molar is absent. PG Care Time/CCT Total # of Minutes Spent Total Time Spent with Patient: Total time spent is greater than 50% in coordination of care (as documented) at patient's floor/unit and/or counseling patient: Coding Level of Care Code 98481 SUB INP/OBS CARE 2/35MIN
[2024-12-24 23:18] LABS: Hematocrit (blood only) 39.7 % (37.0-47.0); Hemoglobin 13.4 g/dl (12.0-16.0); Mean Corpuscular Hemoglobin 30.9 pg (25.0-34.0); Mean Corpuscular Volume 91.7 fL (80.0-100.0); Platelet Count 231 K/uL (130-400); RDW Standard Deviation 45.5 fL (36.4-46.3); Red Blood Count 4.33 M/uL (4.20-5.40); White Blood Count 9.15 K/ul (4.8-10.8)
[2024-12-24 23:34] LABS: Anion Gap 7.0 (3-11); Blood Urea Nitrogen 13.0 mg/dl (6-23); Calcium 9.0 mg/dl (8.6-10.3); Carbon Dioxide 24.0 mmol/L (21-32); Chloride 104.0 mmol/L (98-107); Creatinine Clr Calc Pharmacy 47.2 ml/min; Glucose 152.0 mg/dl (70-99(Fasting)); Potassium 4.2 mmol/L (3.5-5.1); Sodium 135.0 mmol/L (136-145)
[2024-12-24 23:41] LABS: Immature Granulocytes # (auto) 0.02 K/uL (0.01-0.20); Immature Granulocytes % (auto) 0.2 %
[2024-12-25 00:10] VITALS: RESP 16
[2024-12-25 07:14] VITALS: BP 129/79; PULSE 64; TEMP 97.7; O2SAT 97
[2024-12-25 08:14] LABS: Hematocrit (blood only) 43.2 % (37.0-47.0); Hemoglobin 14.3 g/dl (12.0-16.0); Immature Granulocytes # (auto) 0.04 K/uL (0.01-0.20); Immature Granulocytes % (auto) 0.6 %; Mean Corpuscular Hemoglobin 30.2 pg (25.0-34.0); Mean Corpuscular Volume 91.1 fL (80.0-100.0); Platelet Count 272 K/uL (130-400); RDW Standard Deviation 45.5 fL (36.4-46.3); Red Blood Count 4.74 M/uL (4.20-5.40); White Blood Count 7.02 K/ul (4.8-10.8)
[2024-12-25 08:39] LABS: Anion Gap 8.0 (3-11); Blood Urea Nitrogen 12.0 mg/dl (6-23); Calcium 9.3 mg/dl (8.6-10.3); Carbon Dioxide 26.0 mmol/L (21-32); Chloride 104.0 mmol/L (98-107); Creatinine Clr Calc Pharmacy 66.2 ml/min; Glucose 91.0 mg/dl (70-99(Fasting)); Potassium 4.7 mmol/L (3.5-5.1); Sodium 138.0 mmol/L (136-145)
--- NOTE | 2024-12-25 09:54 | Discharge Summary ---
Discharge Summary Date of Service December 25, 2024 Principal Dx & Hospital Course #1 = Principal Diagnosis (1) Dental abscess: 1. Acute right 2nd mandibular molar abscess with surrounding cellulitis, having failed outpatient therapy utilizing augmentin 875/125mg PO bid (start date/time, December 21, 2024, 8:00pm) at home. To address #1, patient received unasyn 3g IV x 1 dose on 12/23/2024, 9:55am), and analgesia (e.g., toradol 10mg IV x 1 dose (12/23/2024, 9:55am), tylenol 1000mg IV x 1 dose (12/23/2024, 9:55am), morphine 2mg IV x 1 dose (12/23/2024, 9:56am), morphine 4mg IV x 1 dose (12/23/2024, 12:33pm)) in [facility] ER bed #C06. Patient subsequently received zosyn 4.5g IV q8 x 6 doses (day #1 on 12/23/2024, 5:04pm, 10:22pm; day #2 on 12/24/2024, 6:00am, 2:20pm, 10:20pm; day #3 on 12/25/2024, 5:46am) in [facility] Med-Surg bed #W357-2 given the high incidence (cf., 40-80%) of resistance of E.coli to unasyn. While both unasyn and zosyn have excellent coverage against anaerobic bacteria, the principal weakness of unasyn is that it has become increasingly ineffective against beta-lactamase producing E. coli, which degrades ampicillin, even in the presence of sulbactam. Patient subsequently formal OMFS evaluation with Dr. Ke Weller with anticipated I & D of acute right 2nd mandibular molar abscess (12/24/2024, 5:19pm). Patient tolerated this procedure very well with right mandibular wound/abscess culture (12/24/2024) demonstrating no growth to date. Patient remained afebrile throughout hospitalization and patient's WBC remained normal throughout hospitalization as well: cf., WBC 9.14, N79 L13 M6 E1 (12/23/2024, 9:50am). cf., WBC 9.15, N92 L 7 M1 (12/23/2024, 11:03pm). cf., WBC 7.02, N81 L14 M4 (12/25/2024, 6:44am). Patient feels well and wants to go home. Patient was subsequently discharged back to her home on 12/25/2024. To this end, patient's [id number], [address] [place] [address], received electronic prescriptions on 12/25/2024, for: a. cefuroxime 500mg PO q12, #14 tablets, no refills. b. metronidazole 500mg PO q 8, #21 tablets, no refills. Of final note, patient was advised to follow up with her PCP Dr. Kayla James, and her new OMFS DrJefry Weller, both within 5-7 days of hospital discharge, for routine, follow up care, as well as to discuss the final results of 12/24/2024 right mandibular wound/abscess culture, and to modify empiric antibiotic therapy described above, as necessary. Patient reports that she will comply with this recommendation. (2) Tobacco abuse: 2. Ongoing tobacco abuse with no subsequent diagnosis of COPD, not on home O2 or home steroids. To address #2, patient received smoking cessation counselling 16 minutes in [facility] ER bed #C06. Patient agreed/agrees to quit smoking tobacco while in [facility]. Patient accepted/accepts offer of nicotine replacement utilizing nicotine patch 14mg transdermal daily while in [facility]. Patient will not continue with nicotine patch 14mg transdermal daily on hospital discharge home on 12/25/2024. 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 The next day/Wednesday (December 13, 2024), I was fine. I was fine until this Wednesday (December 19, 2024), when the back tooth on my right lower jaw started hurting and the gum started swelling up. 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 Now, I must have a tooth infection. On evening (December 21, 2024, 6:45pm), I couldn't take the pain any longer, so I went to [facility] ([address] [place] [address]) and they prescribed augmentin 875/125mg PO bid and ibuprofen 600mg PO q6 prn pain. The augmentin did not take away my swelling and the ibuprofen did not take away my pain. If anything at all, the ibuprofen did a number on my stomach, so I am not taking ibuprofen anymore. I didn't go back to [facility] ([address] [place] [id number]); I came to [facility] ER instead to get my tooth infection taken care of today. I got some IV antibiotic (e.g., unasyn 3g IV x 1 dose on 12/23/2024, 9:55am), and some pain meds (e.g., toradol 10mg IV x 1 dose (12/23/2024, 9:55am), tylenol 1000mg IV x 1 dose (12/23/2024, 9:55am), morphine 2mg IV x 1 dose (12/23/2024, 9:56am), morphine 4mg IV x 1 dose (12/23/2024, 12:33pm)), but I still hurt. The ER doc said that Oromaxillofacial Surgeon Dr. Ke Weller will be stopping by to drain my tooth infection later today. I will need more pain medicine soon." Patient denies antecedent/coincident fevers, chills, diaphoresis, cough, wheeze, sore throat, hemoptysis, shortness of breath, dyspnea on exertion, chest pains, palpitations, pleurisy, nausea, vomiting, diarrhea, abdominal pain, pelvic pain, hematemesis, hematochezia, melena, hematuria, dysuria, frequency, urgency, headaches, dizziness, lightheadedness, visual changes, hearing changes, weakness, falls, syncope, trauma, travel history, sick contacts, or food/drug ingestions novel or new. All other review of systems are reported as negative by the patient on admission date 12/23/2024. In [facility] ER bed #C06, patient was afebrile @ 36.6 degrees Celsius, HR 85, RR 0, O2 sat 98% on room air, and BP 119/78 (12/23/2024, 9:18am). Exam was noted for warmth, edema, tenderness, fluctuance @ base of right 2nd mandibular molar without ulceration, discharge (sanguineous, serous, suppurative), malodor, or lymphangitic streaking, with mercury filling @ right 2nd mandibular molar intact and no visible caries @ right 2nd mandibular molar. The remaining 3 second molars also appeared intact with no visible caries. There was no other evidence of gingivostomatitis on inspection of patient's remaining gum line. Labs in [facility] ER bed #C06 included: WBC 9.14, N79 L13 M6 E1, Hb 14.0, MCV 91.3, MCHC 33.5, platelet 252 (12/23/2024, 9:50am). Na 139, K 4.0 BUN 10, creatinine 0.74, glucose 97, Ca 9.1, Mg 2.1, AST 57, ALT 26, ALK PHOS 80, TBili 0.5 (12/23/2024, 9:50am). Additional testing in [facility] ER bed #C06 included: CT neck with IV contrast (12/23/2024, 9:42am): 1. Visualized portions of the intracranial contents are unremarkable. 2. Parotid and submandibular glands are normal. 3. The epiglottis is normal. 4. Several prominent right-sided cervical lymph nodes are likely reactive. 5. Periapical lucency involving the right second mandibular molar. 6. Small associated rim-enhancing fluid collection overlying the right hemimandible which measures 8 mm x 2 mm. Adjacent stranding represents cellulitis. 7. No additional fluid collections are present. 8. No soft tissue gas. 9. Multiple dental amalgams are present. 10.The left first mandibular molar is absent. Patient was subsequently admitted to the inpatient hospitalist service @ [facility] on 12/23/2024 with the following diagnoses: 1. Acute right 2nd mandibular molar abscess with surrounding cellulitis, having failed outpatient therapy utilizing augmentin 875/125mg PO bid (start date/time, December 21, 2024, 8:00pm) at home. 2. Ongoing tobacco abuse with no subsequent diagnosis of COPD, not on home O2 or home steroids. To address #1, patient was started on unasyn 3g IV x 1 dose on 12/23/2024, 9:55am), and analgesia (e.g., toradol 10mg IV x 1 dose (12/23/2024, 9:55am), tylenol 1000mg IV x 1 dose (12/23/2024, 9:55am), morphine 2mg IV x 1 dose (12/23/2024, 9:56am), morphine 4mg IV x 1 dose (12/23/2024, 12:33pm)) in [facility] ER bed #C06. Patient was started on zosyn 4.5g IV q8 (day #06/27 on 12/23/2024, 4:45pm) in [facility] Med-Surg bed #W357-2 given the high incidence (cf., 40-80%) of resistance of E.coli to unasyn. While both unasyn and zosyn have excellent coverage against anaerobic bacteria, the principal weakness of unasyn is that it has become increasingly ineffective against beta-lactamase producing E. coli, which degrades ampicillin, even in the presence of sulbactam. Patient awaits formal OMFS evaluation with Dr. Ke Weller with anticipated I & D of acute right 2nd mandibular molar abscess in the 12/23/2024 pm. To address #2, patient received smoking cessation counselling 16 minutes in [facility] ER bed #C06. Patient agrees to quit smoking tobacco while in [facility]. Patient accepts offer of nicotine replacement utilizing nicotine patch 14mg transderrmal daily while in [facility]. Discharge Exam Constitutional General: Comfortable, cooperative, coherent. Patient speaks in complete, fluent, and articulate sentences without pause, interruption, cough, or wheeze. HEENT: Normocephalic, atraumatic. Pupils equally round and reactive to light. No nystagmus, gaze paresis, anisocoria, miosis, mydriasis, hyphema, scleral injection, conjunctivitis, or pterygium. No otorrhea. No pharyngeal erythema, edema, or discharge. No warmth, edema, tenderness, fluctuance @ base of right 2nd mandibular molar without ulceration, discharge (sanguineous, serous, suppurative), malodor, or lymphangitic streaking, with mercury filling @ right 2nd mandibular molar intact and no visible caries @ right 2nd mandibular molar. Remaining 3 second molars appear intact with no visible caries. No other evidence of gingivostomatitis on inspection of patient's remaining gum line. Neck: Supple, no stridor, bruit, or hepato-jugular reflux. No lid lag. No exophthalmos/proptosis. No goiter. Jugular venous pressure is estimated to be 3 cm above the sternal angle of Alexei, which in turn, is 5 cm above the level of the right atrium; with jugular venous pressure estimated to be 8 cm, then, there is no jugular venous distention on 12/25/2024. Lymphatics: Positive right anterior cervical lymphadenopathy. Negative for right posterior cervical, left anterior/posterior cervical, supraclavicular, infraclavicular, axillary, epitrochlear, or inguinal adenopathy. Chest: Symmetric rise and fall with respirations. Non-tender to palpation. Lungs: Clear to auscultation and percussion. No audible expiratory wheeze, egophony, pectoriloquy, increase in tactile fremitus, or flatness/dullness to percussion at the bases. Heart: Regular rate. Regular rhythm. S1 and S2 noted. No S3 or S4 summation gallop. No tripartite friction rub. Grade II/ early systolic murmur @ LLSB without radiation to the carotids, axilla, or back, and which remains invariant in regards to the respiratory cycle. Abdomen: Soft, non-tender, non-distended. No rebound, guarding, Mosqueda's sign, or organomegaly. Bowel sounds auscultated in all 4 quadrants. Extremities: No clubbing, cyanosis, or edema in upper extremities or lower extremities bilaterally. 2+ pedal pulses bilaterally. Skin: No decubitus ulcer, exanthem, or enanthem. Genito-urinary: No urethral discharge. No boswell catheter. Neurology: No myoclonus, tremors, or tics. Psychiatry: No homicidal ideation. No suicidal ideation. No flat affect; smiles appropriately. Discharge Plan Discharge Items Patient Disposition: Home - Self-Care Reason For Visit: R MANDIBULAR DENTAL ABSCESS, FAILED OUTPATIENT AUG Discharge Diagnosis: s/p infection of lower right side Condition on Discharge: Fair Activity: Resume your previous activity Lifting: Gradually increase as tolerated Bathing: No limitations Exercise/Sports: Gradually increase as tolerated Driving/Machine Use: Resume 1 day after discharge Weightbearing: Full weightbearing Non-emergency contact: Surgeon Call non-emergency contact if: your symptoms worsen, your temperature is above 101.5, your wound has increased redness, your wound has increased drainage and your wound pain has increased Follow-up/Referrals: Ke Weller DMD [Physician] - Kayla James, DO [Primary Care Provider] - Diet: Regular, Full liquid and Clear liquid Diet Texture: Easy to Chew Diet Comment: diet as tolerated Addtl Attending Provider Instructions: See your PCP Dr. Kayla James and your new OMFS Dr. Ke Weller, both within 5-7 days of hospital discharge for routine follow up care AND to review final right mandibular abscess / wound culture (12/24/2024) results. Pending Studies at Discharge: No Stand-Alone Forms: My [facility], Pain - Opioid Pain Management, Work/School Release, Smoking Cessation Medications and DC Order Prescriptions: New metronidazole 500 mg tablet 500 mg PO Q8H Qty: 21 0RF cefuroxime axetil 500 mg tablet 500 mg PO Q12H 7 Days Qty: 14 0RF Continued hydrocodone-acetaminophen 5-325 mg tablet 1 tab PO Q4H PRN (Reason: pain) Qty: 14 0RF multivitamin Tablet 1 tab PO DAILY Vitamin D3 0 mg PO DAILY Patient Comments: 12/23- OTC unknown dose magnesium 0 mg PO HS Patient Comments: 12/23- OTC unknown dose Discontinued amoxicillin-pot clavulanate 875-125 mg tablet 1 tab PO Q12H Qty: 14 0RF Discharge Orders: Discharge Order (Routine); Ordered 12/25/24 Ordered By: Max Manning Admission Data Admit Date/Time: 12/23/24 13:16 Attending Provider: Mxa Manning Admit Provider: Max Manning Primary Care Provider: Kayla James Other Providers: Ke Weller Daniel Hospital Stay Data Consultations 12/23/24 12:54 Consult Oromaxillofacial Surgery Stat 12/23/24 12:55 ED Decision to Admit Stat Procedures Performed Operation Date: 12/24/24 06:30 Actual Procedures p Irrigation and debridement of right jaw (Right) - Ke Weller, BATSHEVA Diagnostic Imagining Performed 12/23/24 09:42 CT soft tissue neck w con Stat Pending Results Patient Have Any Pending Studies at Discharge: No Discharge Instructions Given to Patient (Per Discharging Provider) See your PCP Dr. Kayla James and your new OMFS Dr. Ke Weller, both within 5-7 days of hospital discharge for routine follow up care AND to review final right mandibular abscess / wound culture (12/24/2024) results. Total Time Total Time Spent Total Time Spent (In Minutes): 35 minutes. Of this time period, 19 minutes were spent in coordinating patient's discharge. Coding Level of Care Code 13209 INP/OBS DISCH >30 MIN Diagnoses Dental abscess K04.7 Tobacco abuse Z72.0
--- NOTE | 2024-12-25 10:32 | Progress Note ---
Date of Service December 25, 2024 Assessment & Plan Admission and Anticipated Discharge Date Admission Date: December 23, 2024 Subjective Post Op infection evaluation The infected area has resolved very well. Swelling is gone and the tissue is almost back to normal in size and texture. No further drainage is noted. Infection has responded very well to the antibiotics, extractions and the I and D. OK for discharge instructions reviewed I requested that the patient continue with massage, heat and wound care. At this time the area is well healed and responded well to treatment, RTC January 02 at 10 am Results & Data Vital Signs (Past 12 Hours) Vital Signs Temp Pulse Resp BP Pulse Ox O2 Del Method 12/25/24 07:13 36.5 C 64 16 129/79 97 Room Air 12/25/24 04:00 36.6 C 70 16 131/81 96 Room Air 12/25/24 00:00 36.6 C 65 16 103/66 94 Room Air PG Care Time/CCT Total # of Minutes Spent Total Time Spent with Patient: Total time spent is greater than 50% in coordination of care (as documented) at patient's floor/unit and/or counseling patient: Coding Level of Care Code None
--- NOTE | 2024-12-30 11:14 | Operative Report ---
PG Post Operative Report Pre & Post Diagnosis Operation Date: 12/24/24 06:30 Pre-Op Diagnosis: Right mandibular dental abscess Post-Op Diagnosis: Right mandibular dental abscess I identified the patient and participated in the time-out.: Yes Procedure Operation Date: 12/24/24 06:30 Actual Procedures p Irrigation and debridement of right jaw (Right) - Ke Weller DMD Surgeon Ke Weller DMD [employer] none Estimated Blood Loss 5 Findings Consistent with Post-Op Diagnosis Specimens C&S Drains none Anesthesia Type General Complications none Indications acute facial pain and swelling Description of Procedure K12.2 K04.6 CPT 37384 D7210 x 2 for #30,31 Present Complaint: I have pain/swelling/drainage from my infected lower right teeth 30,31 Swelling right submandibular area Symptoms have been ongoing for a about 5 days not responding to oral antibiotics now pain and more swelling She can not eat, sleep and in a lot of pain not controlled Oral Exam: Finding--swelling and abscess associated with the # 30 and 31 teeth, tender gingival tissue with deep pocket formation. Actual Procedures K04.6 and K12.2, CPT 48125, D7210 p Incision and Drainage Submandibular Abscess; Removal of Tooth #30,31 (Not Applicable) - Ke Weller DMD Once cleared for surgery general anesthesia was achieved, the eyes were protected by the anesthesia dept criteria. A time out was take for patient ID, antibiotics, equipment and position verif ication once all agreed the procedure began. Local anesthesia using Marcaine with a vasoconstrictor ( 1.8 ml per site) given into right inferior alveolar nerve A throat pack was placed after the oral cavity was irrigated with saline. Once a surgical level of anesthesia was obtained and the local anesthesia was given time for the blocks the surgery was started. I turned my attention to the infection which was located in the floor of the mouth and submental area. The tongue was elevated and there was also swelling associated with tooth # 30,31 Incision and Drainage CPT 05469 K12.1 K04.6 Using a 15 blade an incision was made lateral to the alveolar ridge into the mucobuccal fold. Once the incision was made a lot of pus extruded from the site. This drainage was cultured for anaerobic and aerobic bacteria. A curved hemostat was carefully placed into the infected space along the lateral side of the lower jaw and into the submandibular space and mucobuccal space. Some further drainage was now allowed to escape. I palpated the cheek and submandibular area and no further drainage was expressed. The area was irrigated with at least 100 ml of NS solution. I now turned my attention to remove the # 30 and 31 tooth. Lower # 30,31 D7210 x 2 The full thick Muco-periosteal flap was made on the facial aspect from # 28- 32 area . The flap was reflected to expose the the subperiosteal space the bone adjacent to #30,31 The dental drill was used to remove bone and split the roots, the grossly carious # 31 and 30 were now removed with a 301 elevator and dental forceps, the mental nerve was intact, there was a large amount of granulation tissue on the apex at 31 and some more pus that was expressed. The bone was smoothed, irrigated and sutured closed with a 2-0 chromic. When all the teeth were removed and the I&D completed, I inspected the sites to insure all bleeding was controlled. I removed the throat pack and suctioned the throat. A gauze pressure dressings was placed. All instrument and sponge count was correct. The patient was allowed to awake from the anesthesia. Once full awake the anesthesia tube was removed and the patient was taken to the recovery room with all vital sign stable. The patient tolerated the surgery very well. I will follow the patient in my office, Rx and instructions will be given upon discharge. I attest to the content of the Intraoperative Record and any orders documented therein. Any exceptions are noted below.
== END 2024-12-25 11:23 | disposition home or self-care (01) | DRG 137 ==
LOC: ED 09:14 → 3W 13:16